=== PATIENT | female | born 1975 | race Caucasian/White ===

== ENCOUNTER 2017-04-28 02:35 | Emergency (ER) | payer MEDICAID ==
[~2017-04-28] VITALS: Ht 157.5 cm; Wt 117.3 kg
[2017-04-28 02:36] VITALS: BP 121/77
--- NOTE | 2017-04-28 02:45 | NUR ---
ER MD PORTER EVALUATING PATIENT
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
[2017-04-28 02:57] VITALS: BP 120/72
== END 2017-04-28 02:55 ==
LOC: MED 02:35
DX: Z02.89 Encounter for other administrative examinations (principal); Z90.89 Acquired absence of other organs; V49.9XXA Car occupant (driver) (passenger) injured in unspecified traffic accident, initial encounter; Y93.89 Activity, other specified; Y92.488 Other paved roadways as the place of occurrence of the external cause; Y99.8 Other external cause status
CPT/HCPCS: 99283